=== PATIENT | female | born 1940 | race Caucasian/White ===

== ENCOUNTER 2021-03-11 10:58 | Emergency (ER) | payer MEDICARE, SELFPAY ==
[~2021-03-11] VITALS: Ht 170.2 cm; Wt 72.6 kg
[2021-03-11 11:21] VITALS: BP_SYST 162
[2021-03-11 11:43] LABS: BASOPHILS # (AUTO) 0.1 K/uL (0.0-0.2); BASOPHILS % (AUTO) 0.7 % (0.0-2.0); EOSINOPHILS # (AUTO) 0.1 K/uL (0.0-0.4); EOSINOPHILS % (AUTO) 1.1 % (0.0-4.0); HEMATOCRIT 40.1 % (36-48); HEMOGLOBIN 13.1 g/dL (12.0-16.0); LYMPHOCYTES % (AUTO) 9.6 % (20.5-51.5); MEAN CORPUSCULAR HEMOGLOBIN 28 pg (27-31); MEAN CORPUSCULAR HGB CONC 33 % (32-36); MEAN CORPUSCULAR VOLUME 86 fL (79.0-98.0); MONOCYTES # (AUTO) 0.5 K/uL (0.0-1.0); MONOCYTES % (AUTO) 4.7 % (1.7-9.3); NEUTROPHILS # (AUTO) 9.2 K/uL (1.8-7.7); NEUTROPHILS % (AUTO) 83.9 % (40.0-70.0); PLATELET COUNT (AUTO) 407 K/uL (130-430); RED BLOOD CELL COUNT(AUTO) 4.65 MIL/uL (4.2-6.2); RED CELL DISTRIBUTION WIDTH 14.6 % (9.0-15.0)
[2021-03-11 12:09] LABS: ANION GAP 9 (5-15); CALCIUM 8.9 mg/dL (8.4-11.0); CHLORIDE 103 mmol/L (98-107); CREATININE 0.81 mg/dL (0.55-1.30); GLUCOSE 97 mg/dL (70-99); POTASSIUM 3.7 mmol/L (3.5-5.1); SODIUM SERUM 140 mmol/L (136-145); UREA NITROGEN, BLOOD 22 mg/dL (8-21)
[2021-03-11 12:16] LABS: ALANINE AMINOTRANSFERASE 22 U/L (12-78); ALBUMIN 3.6 g/dL (3.4-4.8); ASPARTATE AMINOTRANSFERASE 24 U/L (10-37); TOTAL BILIRUBIN 0.4 mg/dL (0.0-1.0)
[2021-03-11 12:26] LABS: BILIRUBIN,URINE NEGATIVE (NEGATIVE); BLOOD, URINE 1+ (NEGATIVE); CLARITY/URINE CLEAR (CLEAR); COLOR,URINE YELLOW (YELLOW); GLUCOSE,URINE NEGATIVE (NEGATIVE); KETONES,URINE NEGATIVE (NEGATIVE); LEUKOCYTE ESTERASE ,URINE NEGATIVE (NEGATIVE); NITRITE, URINE NEGATIVE (NEGATIVE); PH,URINE 5.5 (5.0-8.0); PROTEIN URINE 1+ (NEGATIVE); UROBILINOGEN,URINE 0.2 (0.2-1.0)
[2021-03-11] MEDS ORDERED: AMLO5TAB4 PO (12:41)
[2021-03-11] MEDS ORDERED: LEVO25TA7 PO (12:41)
[2021-03-11] MEDS ORDERED: LEVE750T4 PO (12:41)
[2021-03-11] MEDS ORDERED: LISI-209 PO (12:41)
[2021-03-11 12:44] LABS: BACTERIA,URINE None Seen /HPF (None Seen); WBC,URINE NONE SEEN /HPF (0-3)
[2021-03-11] MEDS ORDERED: DOXYCYCLINE HYCLATE 100 MG in D5W 100 ML IV ONE (14:00)
[2021-03-11] MEDS ORDERED: cefTRIAXone 1 GM in D5W 50 ML IV ONE (14:00)
[2021-03-11] MEDS ORDERED: cefTRIAXone 1 GM VIAL ONE (14:12)
[2021-03-11] MEDS ORDERED: DOXYCYCLINE HYCLATE 100 MG VIAL IV ONE (14:54)
[2021-03-11 15:37] VITALS: BP_SYST 155
== END 2021-03-11 15:37 | disposition short-term general hospital (02) ==
LOC: SED 10:58
DX: S02.31XA Fracture of orbital floor, right side, initial encounter for closed fracture (principal); R55 Syncope and collapse; Z79.899 Other long term (current) drug therapy; Z20.822 Contact with and (suspected) exposure to COVID-19; W18.39XA Other fall on same level, initial encounter; Y93.89 Activity, other specified; Y92.89 Other specified places as the place of occurrence of the external cause; Y99.8 Other external cause status
CPT/HCPCS: 36415; 70450; 70486; 71045; 72125; 76376; 80053; 81000; 83605; 84484; 85025; 87040; 87426; 93005; 96365; 96367; 99285; J0696; J3490

== ENCOUNTER 2021-08-24 10:38 | Emergency (ER) | payer MEDICARE ==
[~2021-08-24] VITALS: Ht 165.1 cm; Wt 59.0 kg
[~2021-08-24 10:38] MED LIST: AMLO5TAB4 PO; LEVE750T4 PO; LEVO25TA7 PO; LISI-209 PO
[2021-08-24 10:45] VITALS: BP_SYST 194
--- NOTE | 2021-08-24 10:45 | NUR ---
Placed in room 6 . Placed on market news reporter, blood pressure machine and pulse oximeter. To gown for exam. Side rails up.
--- NOTE | 2021-08-24 10:50 | NUR ---
PT BIBA FROM HOME C/O RLQ ABD PAIN AT HOME AFTER EATING BREAKFAST. PT THEN WENT TO BATHROOM AND SUDDENLY BECAME WEAK. PER DAUGHTER PT HAD NEAR SYNCOPLE AND SHE CAUGHT HER FROM FALLING. UPON ARRIVAL PT STATES HER PAIN IS GONE, HOWEVER SHE FEELS LIKE SHE NEEDS TO URINATE AND IS GUARDING LOWER ABD. PT IS AAOX3, VSS
--- NOTE | 2021-08-24 11:00 | NUR ---
PT AMBULATES TO BATHROOM WITH STEADY GAIT TO PROVIDE URINE SAMPLE.
--- NOTE | 2021-08-24 11:10 | NUR ---
PT ONLY ABLE TO VOID SMALL AMOUNT BUT STILL STATES SHE FEELS LIKE SHE NEEDS TO VOID. LOWER ABD TENDERNESS TO PALPATION. DAUGHTER (CAREGIVER) AT THE BEDSIDE INSISTING TO PLACE A URINARY CATHETER DUE TO CONCERN FOR URINARY RETENTION. MADE AWARE
--- NOTE | 2021-08-24 11:20 | NUR ---
# 16 FR Davis catheter with use of sterile technique. Immediate return of 250 cc YELLOW urine noted. Bedside drainage bag placed below level of bladder. Urine sample collected and sent to lab. Pt tolerated procedure WELL.
[2021-08-24 11:47] LABS: BILIRUBIN,URINE NEGATIVE (NEGATIVE); BLOOD, URINE 1+ (NEGATIVE); COLOR,URINE YELLOW (YELLOW); GLUCOSE,URINE NEGATIVE (NEGATIVE); KETONES,URINE NEGATIVE (NEGATIVE); LEUKOCYTE ESTERASE ,URINE 3+ (NEGATIVE); NITRITE, URINE POSITIVE (NEGATIVE); PROTEIN URINE NEGATIVE (NEGATIVE); UROBILINOGEN,URINE 0.2 (0.2-1.0)
[2021-08-24 11:49] LABS: CLARITY/URINE HAZY (CLEAR)
[2021-08-24 11:53] LABS: BACTERIA,URINE MODERATE /HPF (None Seen); MUCUS,URINE 1+ /LPF (None Seen); WBC,URINE 20-50 /HPF (0-3)
[2021-08-24] MEDS ORDERED: cefTRIAXone 1 GM in D5W 50 ML IV ONE (12:00)
[2021-08-24] MEDS ORDERED: NACL 0.9% 1,000 ML IV ONE (12:00)
--- NOTE | 2021-08-24 12:00 | NUR ---
# 20 gauge angiocath placed to RAC. Use of asceptic technique. Opsite placed over site. Blood return noted. Blood for lab drawn from site. Flushed with 10 cc of normal saline. No evidence of infiltration noted. Patient tolerated well.
--- NOTE | 2021-08-24 12:20 | NUR ---
Patient transported to radiology via GURNEY, accompanied by STAFF.
[2021-08-24] MEDS ORDERED: cefTRIAXone 1 GM VIAL ONE ×2 (12:27→12:28)
[2021-08-24 12:32] LABS: BARBITURATE, URINE NEGATIVE (NEG <=200); BENZODIAZEPINE, URINE NEGATIVE (NEG <=150); CANNABINOID, URINE NEGATIVE (NEG <=50); COCAINE, URINE NEGATIVE (NEG <=150); METHAMPHETAMINES SCREEN,URINE NEGATIVE (NEG <=500); OPIATE, URINE NEGATIVE (NEG <=100); PHENCYCLIDINE SCREEN,URINE NEGATIVE (NEG <=25); UR TRICYCLIC ANTIDEPRESSANTS NEGATIVE (NEG <=300); URINE AMPHETAMINE NEGATIVE (NEG <=500); URINE METHADONE NEGATIVE (NEG <=200); URINE OXYCODONE SCREEN NEGATIVE (NEG <=100); URINE PROPOXYPHENE SCREEN NEGATIVE (NEG <=300)
[2021-08-24 12:43] LABS: BASOPHILS # (AUTO) 0.1 K/uL (0.0-0.2); BASOPHILS % (AUTO) 0.9 % (0.0-2.0); EOSINOPHILS # (AUTO) 0.1 K/uL (0.0-0.4); EOSINOPHILS % (AUTO) 1.5 % (0.0-4.0); HEMATOCRIT 39.6 % (36-48); HEMOGLOBIN 13.3 g/dL (12.0-16.0); LYMPHOCYTES # (AUTO) 1.4 K/uL (1.0-5.5); LYMPHOCYTES % (AUTO) 17.9 % (20.5-51.5); MEAN CORPUSCULAR HEMOGLOBIN 28 pg (27-31); MEAN CORPUSCULAR HGB CONC 34 % (32-36); MEAN CORPUSCULAR VOLUME 83 fL (79.0-98.0); MONOCYTES # (AUTO) 0.6 K/uL (0.0-1.0); MONOCYTES % (AUTO) 7.4 % (1.7-9.3); NEUTROPHILS # (AUTO) 5.7 K/uL (1.8-7.7); NEUTROPHILS % (AUTO) 72.3 % (40.0-70.0); PLATELET COUNT (AUTO) 354 K/uL (130-430); RED BLOOD CELL COUNT(AUTO) 4.78 MIL/uL (4.2-6.2); RED CELL DISTRIBUTION WIDTH 14.8 % (9.0-15.0); WHITE BLOOD COUNT (AUTO) 7.8 K/uL (4.8-10.8)
[2021-08-24 12:45] LABS: ANION GAP 6 (5-15); CALCIUM 8.9 mg/dL (8.4-11.0); CHLORIDE 104 mmol/L (98-107); CREATININE 0.77 mg/dL (0.55-1.30); GLUCOSE 105 mg/dL (70-99); POTASSIUM 3.4 mmol/L (3.5-5.1); SODIUM SERUM 139 mmol/L (136-145); UREA NITROGEN, BLOOD 13 mg/dL (8-21)
[2021-08-24 12:47] LABS: PROTHROMBIN TIME 10.6 SECS (9.5-12.5)
[2021-08-24 12:53] LABS: ALANINE AMINOTRANSFERASE 19 U/L (12-78); ALBUMIN 3.3 g/dL (3.4-4.8); ASPARTATE AMINOTRANSFERASE 29 U/L (10-37); TOTAL BILIRUBIN 0.2 mg/dL (0.0-1.0)
[2021-08-24 12:56] LABS: ACETAMINOPHEN < 1 ug/mL (1-30); ALCOHOL, BLOOD < 3 mg/dL (<10)
--- NOTE | 2021-08-24 13:14 | NUR ---
eliza burris done and sent to lab
[2021-08-24] MEDS ORDERED: HALOPERIDOL LACTATE 5 MG/ML VIAL IVP ONE (15:00)
--- NOTE | 2021-08-24 15:25 | NUR ---
PT IS AGITATED AND STATES SHE WANTS THE CATHETER OUT, MADE AWARE AND OK TO DC CHAPMAN. 1200ML YELLOW URINE EMPTIED. PT TOLERATED WELL
[2021-08-24] MEDS ORDERED: LORazepam 2 MG/ML VIAL IVP ONE (15:30)
--- NOTE | 2021-08-24 15:53 | NUR ---
TRANSFER INFO [facility] Dr. Cobb, W [phone] ALS ETA [phone] spoke to juliano sheikh systems analyst
--- NOTE | 2021-08-24 16:22 | NUR ---
Patient to be transferred to [facility]. Is being transferred due to higher level of care. Receiving facility has accepting physician and available space. ER physician has signed transfer form. Patient or responsible republican has agreed to transfer and signed form. Patient belongings inventoried and will be sent with patient. Copy of nursing notes, lab reports, EKG, Physicians Orders and X-rays to be sent with patient. Report called to BRITNEY CEDENO at receiving facility. Receiving physician is DR. MONTGOMERY. [facility] has been called for transfer. ETA is [phone].
[2021-08-24 17:00] VITALS: BP_SYST 147
--- NOTE | 2021-08-24 17:35 | NUR ---
PT AMBULATES TO BATHROOM WITH ASSIST. ABLE TO VOID IN TOILET
--- NOTE | 2021-08-24 17:35 | NUR ---
YASSINE [id number] SPOKE TO MARIAA
--- NOTE | 2021-08-24 19:12 | NUR ---
[facility] HERE TO TRANSFER PT
== END 2021-08-24 16:51 | disposition short-term general hospital (02) ==
LOC: SED 10:38
DX: R55 Syncope and collapse (principal); N30.00 Acute cystitis without hematuria; G40.909 Epilepsy, unspecified, not intractable, without status epilepticus; M48.54XA Collapsed vertebra, not elsewhere classified, thoracic region, initial encounter for fracture; I10 Essential (primary) hypertension; Z88.5 Allergy status to narcotic agent; Z79.899 Other long term (current) drug therapy; Z20.822 Contact with and (suspected) exposure to COVID-19
CPT/HCPCS: 36415; 71045; 74176; 76376; 80053; 80307; 81000; 83605; 84484; 85025; 85610; 87040; 87086; 87426; 93005; 96365; 96375; 99291; G0480; G0481; G0482; J0696; J1630; J2060

== ENCOUNTER 2022-07-16 22:15 | Emergency (ER) | payer MEDICARE ==
[~2022-07-16 22:15] MED LIST changes: -LEVE750T4 PO
[2022-07-16 22:18] VITALS: BP_SYST 174
[2022-07-16] MEDS ORDERED: BACITRACIN 1 GM OINT TP ONE (22:45)
[2022-07-17 00:02] VITALS: BP_SYST 154
== END 2022-07-17 00:02 | disposition home or self-care (01) ==
LOC: SED 22:15
DX: S00.03XA Contusion of scalp, initial encounter (principal); S00.81XA Abrasion of other part of head, initial encounter; I10 Essential (primary) hypertension; Z88.5 Allergy status to narcotic agent; Z88.8 Allergy status to other drugs, medicaments and biological substances; Z79.899 Other long term (current) drug therapy; W05.0XXA Fall from non-moving wheelchair, initial encounter; Y93.89 Activity, other specified; Y92.89 Other specified places as the place of occurrence of the external cause; Y99.8 Other external cause status
CPT/HCPCS: 70450-TC; 70486-TC; 72125-TC; 76376; 99284